=== PATIENT | female | born 1985 | race African-American/Black ===

== ENCOUNTER 2017-07-26 18:29 | Inpatient (IN) | payer OTHER ==
[2017-07-26] MEDS ORDERED: Oxytocin/Lactated Ringers 10 UNIT/1,000 ML BAG IV SCH (18:45)
[2017-07-26] MEDS ORDERED: Sodium Chloride 0.9% 10 ML Syringe FLUSH PRN (18:45)
[2017-07-26] MEDS ORDERED: Ondansetron 4 MG/2 ML SDV IVPUSH PRN ×2 (18:45→19:30)
[2017-07-26] MEDS ORDERED: Nalbuphine 20 MG/ML 1 ML Syringe IVPUSH PRN (18:45)
[2017-07-26] MEDS: Lactated Ringers 1,000 ML IV SCH ×3 (19:01→20:35)
[2017-07-26] MEDS ORDERED: fentaNYL 100 MCG/2 ML SDV EPIDUR PRN (19:30)
[2017-07-26] MEDS ORDERED: ePHEDrine 50 MG/ML SDV IVPUSH PRN (19:30)
--- NOTE | 2017-07-26 19:33 | PCM.PREANE ---
Preanesthetic Assessment - Anesthesia/Transfusion/Family Hx Anesthesia History: Prior Anesthesia Without Reaction Family History of Anesthesia Reaction: No Transfusion History: No Prior Transfusion(s) Intubation History: Unknown - Review of Systems General: No Symptoms Pulmonary: No Symptoms Cardiovascular: No Symptoms Gastrointestinal: No Symptoms Neurological: No Symptoms Other: Reports: None - Physical Assessment NPO Status Date: 07/26/17 NPO Status Time: 16:00 Pulse: 86 O2 Sat by Pulse Oximetry: 100 Respiratory Rate: 20 Blood Pressure: 158/93 Temperature: 36.8 C Vital Signs: Last Vital Signs Temp 36.8 C 07/26/17 18:45 Pulse 86 07/26/17 19:06 Resp 20 07/26/17 18:45 BP 158/93 H 07/26/17 19:06 Pulse Ox 100 07/26/17 19:06 Height: 1.6 m Weight: 118.841 kg ASA Class: 2 Mental Status: Alert & Oriented x3 Airway Class: Mallampati = 3 Dentition: Reports: Normal Dentition, Caries Thyro-Mental Finger Breadths: 3 Mouth Opening Finger Breadths: 3 ROM/Head Extension: Full Lungs: Clear to Auscultation, Normal Respiratory Effort Cardiovascular: Regular Rate, Regular Rhythm, No Murmurs - Lab Values: Laboratory Last Values WBC 10.82 K/mm3 (3.98-10.04) H 07/26/17 18:55 RBC 4.71 M/mm3 (3.98-5.22) 07/26/17 18:55 Hgb 13.1 gm/L (11.2-15.7) 07/26/17 18:55 Hct 39.1 % (34.1-44.9) 07/26/17 18:55 MCV 83.0 fl (79.4-94.8) 07/26/17 18:55 MCH 27.8 pg (25.6-32.2) 07/26/17 18:55 MCHC 33.5 g/dl (32.2-35.5) 07/26/17 18:55 RDW Std Deviation 47.2 fL (36.4-46.3) H 07/26/17 18:55 Plt Count 172 K/mm3 (182-369) L 07/26/17 18:55 MPV 9.6 fl (9.4-12.3) 07/26/17 18:55 Neut % (Auto) 72.0 % (34.0-71.1) H 07/26/17 18:55 Lymph % (Auto) 17.6 % (19.3-51.7) L 07/26/17 18:55 Steele % (Auto) 7.7 % (4.7-12.5) 07/26/17 18:55 Eos % (Auto) 1.4 (0.7-5.8) 07/26/17 18:55 Baso % (Auto) 0.1 % (0.1-1.2) 07/26/17 18:55 Neut # (Auto) 7.80 K/mm3 (1.56-6.13) H 07/26/17 18:55 Lymph # (Auto) 1.90 K/mm3 (1.18-3.74) 07/26/17 18:55 Steele # (Auto) 0.83 K/mm3 (0.24-0.36) H 07/26/17 18:55 Eos # (Auto) 0.15 K/mm3 (0.04-0.36) 07/26/17 18:55 Baso # (Auto) 0.01 K/mm3 (0.01-0.08) 07/26/17 18:55 Above labs reviewed and noted and within acceptable ranges to proceed with epidural. - Allergies Allergies/Adverse Reactions: Allergies Allergy/AdvReac Type Severity Reaction Status Date / Time No Known Allergies Allergy Verified 07/26/17 12:55 - Anesthesia Plan Pre-Op Medication Ordered: None - Acknowledgements Anesthesia Type Planned: Epidural Pt an Appropriate Candidate for the Planned Anesthesia: Yes Alternatives and Risks of Anesthesia Discussed w Pt/Guardian: Yes Pt/Guardian Understands and Agrees with Anesthesia Plan: Yes PreAnesthesia Questionnaire - HOME MEDS Home Medications: Home Meds PNV95/Ferrous Fumarate/FA [ Tablet] 1 each PO DAILY 07/26/17 [History] - CURRENT (IN HOUSE) MEDS Current Meds: Current Medications Lactated Ringer's (Ringers, Lactated) 1,000 mls @ 100 mls/hr IV ASDIRECTED KRISTEN Last Admin: 07/26/17 19:01 Dose: 999 mls/hr Oxytocin/Lactated Ringer's (Pitocin In Lr 10 Units/1,000 Ml) 10 unit in 1,000 mls @ 500 mls/hr IV .CONTINUOUS KRISTEN Nalbuphine HCl (Nubain) 10 mg IVPUSH Q2H PRN PRN Reason: Pain (moderate 4-6) Ondansetron HCl (Zofran) 4 mg IVPUSH Q4H PRN PRN Reason: Nausea/Vomiting Sodium Chloride (Saline Flush) 10 ml FLUSH ASDIRECTED PRN PRN Reason: Keep Vein Open
[2017-07-26] MEDS ORDERED: Bupivacaine/fentaNYL/NS 100 ML Bag EPIDUR SCH (19:45)
--- NOTE | 2017-07-26 20:02 | PCM.LDHP ---
L&D History of Present Illness - General Date of Service: 07/26/17 Admit Problem/Dx: Patient Status Order with Admit Dx/Problem 07/26/17 18:46 Patient Status [ADT] Routine Admission Diagnosis/Problem Admission Diagnosis/Problem 07/26/17 19:55 Shayy Is a 32-year-old 2 para 1001 -[place] female who is seen in labor and delivery with active labor. Source of Information: Patient History Limitations: Reports: No Limitations - History of Present Illness Introduction:: Shayy is a 32-year-old 2 para 1001 -[place] female who was seen in labor and delivery in active labor. Her NANDA is set at 08/01/2017 by an early ultrasound done on 12/12/2016. This is closely supported by her LMP of placing her due date March the same time period. She was seen earlier today in labor and delivery for concerns about irregular contractions. She is noted to be 4 cm, 80% effaced, very soft, -4 station, posterior position with bulging bag of fernandez at that time. Nonstress test was reactive. She returns with more active contractions, occurring every 3-5 minutes. Centimeters by nurse evaluation. She is admitted. [employer] history 2 para 1001. Her first delivery was a viable, mejias vaginal delivery of a little weighing 6 lbs. 4 oz. on 04/18/2008 at 40-0/7 weeks. She had her last menstrual period as described above starting on 2016. Patient was seen early in the course the and followed through on a regular basis. Her weight gain was from 228 pounds 2 approximately 262 pounds for a weight gain of about 34 pounds. Growth was appropriate for dates. Her vital signs remained stable throughout the course. laboratory testing in showed blood to be O+ with a negative antibody screen. First trimester hemoglobin was 13.4 and platelets 246. Rubella titer was negative. Hepatitis B surface antigen was nonreactive. Second trimester labs showed hemoglobin 11.5 and an 1 hour GTT of 129. Antibody screen is negative. Group B strep screen was negative. Read first trimester were negative as was an HIV assay. Minimal risk factors noted in the . Past medical history: 1. Medical history of chlamydia. 2. Normal spontaneous vaginal delivery. Past surgical history: 1. Laparoscopic cholecystectomy Family history: Mother with diabetes. No anesthesia, bleeding, blood clotting problems noted in the family. No problems noted either. Social history. Patient is , is Olaf, she denies significant most alcohol, drugs or tobacco. She did smoke earlier in a quarter pack cigarettes per day. She does not work outside the home. Review of stones: In general patient is having significant discomfort at this time secondary labor Again: Negative Lungs: No shortness of breath or infectious symptoms Cardiovascular: No chest pain or exercise tolerance Breasts: Negative. Patient does plan to breast-feed GI: Negative : Contractions associated labor. Increased fundal height consistent with dates. Musculo skeletalminimal edema in lower extremities on occasion Neurological: Negative Physical exam: In general patient is a well-developed, well-nourished [place] female in moderate distress secondary labor. Skin is warm dry without lesions. HEENT neck and back within normal limits Lungs are clear with good breath sounds in all lung yeager. Cardiovascular exam shows regular rate and rhythm without murmurs. Breast exam is deferred. Abdomen is current with fundal height consistent with term Cervix as described above. Extremities and neurological exam grossly within normal limits. 07/26/17 20:02 Pain Score: 10 - Related Data Allergies/Adverse Reactions: Allergies Allergy/AdvReac Type Severity Reaction Status Date / Time No Known Allergies Allergy Verified 07/26/17 12:55 Home Medications: Home Meds PNV95/Ferrous Fumarate/FA [ Tablet] 1 each PO DAILY 07/26/17 [History] H&P Review of Systems - Review of Systems: Review Of Systems: See Below L&D Exam - Exam Exam: See Below - Vital Signs Vital Signs: Last Vital Signs Temp 36.8 C 07/26/17 19:43 Pulse 86 07/26/17 19:43 Resp 20 07/26/17 19:43 BP 158/93 H 07/26/17 19:43 Pulse Ox 100 07/26/17 19:43 Weight: 118.841 kg - Patient Data Lab Results Last 24 hrs: Laboratory Results - last 24 hr 07/26/17 Range/Units 18:55 WBC 10.82 H (3.98-10.04) K/mm3 RBC 4.71 (3.98-5.22) M/mm3 Hgb 13.1 (11.2-15.7) gm/L Hct 39.1 (34.1-44.9) % MCV 83.0 (79.4-94.8) fl MCH 27.8 (25.6-32.2) pg MCHC 33.5 (32.2-35.5) g/dl RDW Std Deviation 47.2 H (36.4-46.3) fL Plt Count 172 L (182-369) K/mm3 MPV 9.6 (9.4-12.3) fl Neut % (Auto) 72.0 H (34.0-71.1) % Lymph % (Auto) 17.6 L (19.3-51.7) % [place] % (Auto) 7.7 (4.7-12.5) % Eos % (Auto) 1.4 (0.7-5.8) Baso % (Auto) 0.1 (0.1-1.2) % Neut # (Auto) 7.80 H (1.56-6.13) K/mm3 Lymph # (Auto) 1.90 (1.18-3.74) K/mm3 [place] # (Auto) 0.83 H (0.24-0.36) K/mm3 Eos # (Auto) 0.15 (0.04-0.36) K/mm3 Baso # (Auto) 0.01 (0.01-0.08) K/mm3 Result Diagrams: 07/26/17 18:55 Problem List Initiated/Reviewed/Updated: Yes Orders Last 24hrs: Active Orders 24 hr Category Date Time Status Patient Status [ADT] Routine ADT 07/26/17 18:46 Active Activity as Tolerated [RC] PFP Care 07/26/17 18:45 Active Communication Order [RC] ASDIRECTED Care 07/26/17 18:45 Active Heart Tones [RC] ASDIRECTED Care 07/26/17 18:46 Active Notify Provider [RC] ASDIRECTED Care 07/26/17 19:30 Active Notify Provider [RC] PFP Care 07/26/17 18:45 Active Notify Provider [RC] PRN Care 07/26/17 18:45 Active Oxygen Therapy [RC] ASDIRECTED Care 07/26/17 19:30 Active Peripheral IV Care [RC] . DIRECTED Care 07/26/17 18:46 Active Pulse Oximetry [RC] ASDIRECTED Care 07/26/17 19:30 Active Vital Signs [RC] PER UNIT ROUTINE Care 07/26/17 18:45 Active CBC WITH AUTO DIFF [HEME] Stat Lab 07/26/17 18:55 Results Bupivacaine/fentaNYL/NS [fentaNYL/Bupivacaine/NS 2 MCG- Med 07/26/17 19:45 Active 0.125% 100 ML] 100 ml EPIDUR ASDIRECTED Lactated Ringers [Ringers, Lactated] 1,000 ml Med 07/26/17 18:45 Active IV ASDIRECTED Nalbuphine [Nubain] Med 07/26/17 18:45 Active 10 mg IVPUSH Q2H PRN Ondansetron [Zofran] Med 07/26/17 18:45 Active 4 mg IVPUSH Q4H PRN Oxytocin/Lactated Ringers [Pitocin in LR 10 Units/1,000 Med 07/26/17 18:45 Active ML] 10 unit in 1,000 ml IV .CONTINUOUS Sodium Chloride 0.9% [Saline Flush] Med 07/26/17 18:45 Active 10 ml FLUSH ASDIRECTED PRN ePHEDrine [ePHEDrine Sulfate] Med 07/26/17 19:30 Active 5 mg IVPUSH ASDIRECTED PRN fentaNYL [Sublimaze] Med 07/26/17 19:30 Active 100 mcg EPIDUR Q3H PRN Electronic Heart Tones Ext w TOCO [WOMSER] Oth 07/26/17 18:45 Ordered Routine Electronic Heart Tones Internal [WOMSER] Per Unit Oth 07/26/17 18:45 Ordered Routine Peripheral IV Insertion Adult [OM.PC] Routine Oth 07/26/17 18:45 Ordered Resuscitation Status Routine Resus Stat 07/26/17 18:45 Ordered Medication Orders Ephedrine Sulfate (Ephedrine Sulfate) 5 mg IVPUSH ASDIRECTED PRN PRN Reason: Hypotension Fentanyl (Sublimaze) 100 mcg EPIDUR Q3H PRN PRN Reason: Pain Last Admin: 07/26/17 19:44 Dose: 100 mcg Fentanyl/Bupivacaine HCl (Fentanyl/Bupivacaine/Ns 2 Mcg-0.125% 100 Ml) 100 ml EPIDUR ASDIRECTED KRISTEN Last Admin: 07/26/17 19:46 Dose: 100 ml Lactated Ringer's (Ringers, Lactated) 1,000 mls @ 100 mls/hr IV ASDIRECTED KRISTEN Last Admin: 07/26/17 19:36 Dose: 999 mls/hr Infusion: 07/26/17 19:36 Dose: 999 mls/hr Admin: 07/26/17 19:01 Dose: 999 mls/hr Oxytocin/Lactated Ringer's (Pitocin In Lr 10 Units/1,000 Ml) 10 unit in 1,000 mls @ 500 mls/hr IV .CONTINUOUS KRISTEN Nalbuphine HCl (Nubain) 10 mg IVPUSH Q2H PRN PRN Reason: Pain (moderate 4-6) Ondansetron HCl (Zofran) 4 mg IVPUSH Q4H PRN PRN Reason: Nausea/Vomiting Sodium Chloride (Saline Flush) 10 ml FLUSH ASDIRECTED PRN PRN Reason: Keep Vein Open Assessment/Plan Comment:: Assessment: 1.39-1/7 week intrauterine , active labor, advanced cervical dilation 2. Group B strep screen negative 3. Patient plans to breast-feed 4. Patient desires epidural 5. Rubella assay nonreactive. Patient is a candidate for MMR. Plan: 1. Anticipate normal spontaneous vaginal delivery. 2. Epidural per patient desire 3. Routine labor care. Will obtain a CBC upon admission. 4. Will offer MMR after delivery and prior to discharge from the hospital as rubella titer is nonreactive. 5. Support breast-feeding decision
--- NOTE | 2017-07-26 21:07 | PCM.SN ---
- Free Text/Narrative Note: Delivery note: Shayy is a 32-year-old 2 now para 2002 -[place] female who was admitted on the evening of 07/26/2017 in active labor with advanced cervical dilation to 8 cm. and having contractions every 3 minutes. She was 39-1/7 weeks with an NANDA of 08/01/2017. She been seen earlier in the day in what now appears to have been very early labor. Patient progressed quickly after epidural was placed for analgesia and became completely dilated.. She was pushed for approximately 15 minutes and delivered a viable, mejias, 3440 g (7 lbs. 9 oz. ) female infant with Apgars of 8 and 9, a length of 20 inches in a right occiput anterior position. Pitocin was administered IV after delivery of the baby to facilitate an increase in uterine tone and decrease the likelihood of bleeding. The perineum had a first-degree laceration which was repaired with 3- 0 Monocryl suture in a routine fashion using the epidural analgesia or anesthesia. The placenta delivered in a Dyer presentation, appeared intact and complete and was discarded per patient desire. Estimated blood loss was 100 mL. Patient' s condition good. Patient does plan to breast-feed.
[2017-07-26] MEDS ORDERED: Benzocaine/Menthol 20%-0.5% Spray 56 GM Canister TOP PRN (21:36)
[2017-07-26] MEDS ORDERED: Measles, Mumps & Rubella Vaccine 0.5 ML SDV SUBCUT ONE (21:36)
[2017-07-26] MEDS ORDERED: Docusate Sodium 100 MG Cap PO PRN (21:36)
[2017-07-26] MEDS ORDERED: Acetaminophen 325 MG Tab PO PRN (21:36)
[2017-07-26] MEDS ORDERED: Lanolin 100% Cream 7 GM Tube TOP PRN (21:36)
[2017-07-26] MEDS ORDERED: Witch Hazel Medicated Pads 100/Jar TOP PRN (21:36)
[2017-07-26] MEDS ORDERED: Bupivacaine 0.25% 10 ML SDV ONE (22:00)
[2017-07-26] MEDS: Ibuprofen 600 MG Tab PO PRN (23:46)
[2017-07-27] MEDS: Ibuprofen 600 MG Tab PO PRN ×2 (06:32→13:15)
--- NOTE | 2017-07-27 07:39 | PCM.SN ---
- Free Text/Narrative Note: note: Patient is doing well in the period. Minimal lochia, voiding well, ambulated without problems. Nursing without concerns. Patient is afebrile, vital signs are stable Abdomen is flat, soft, uterus is below the umbilicus and is firm and nontender. Legs are nontender. Assessment: recovery going well. Plan: Routine care. Patient be discharged home within the next 24- 48 hours.
--- NOTE | 2017-07-27 19:34 | PCM.DCSUM1 ---
Discharge Summary - Hospital Course Free Text/Narrative:: Shayy is a 32-year-old 2 now para 2002 -[place] female who was admitted on the evening of 07/26/2017 in active labor with advanced cervical dilation to 8 cm. and having contractions every 3 minutes. She was 39-1/7 weeks with an NANDA of 08/01/2017. She been seen earlier in the day in what now appears to have been very early labor. Patient progressed quickly after epidural was placed for analgesia and became completely dilated.. She was pushed for approximately 15 minutes and delivered a viable, mejias, 3440 g (7 lbs. 9 oz. ) female infant with Apgars of 8 and 9, a length of 20 inches in a right occiput anterior position. Pitocin was administered IV after delivery of the baby to facilitate an increase in uterine tone and decrease the likelihood of bleeding. The perineum had a first-degree laceration which was repaired with 3- 0 Monocryl suture in a routine fashion using the epidural analgesia or anesthesia. The placenta delivered in a Dyer presentation, appeared intact and complete and was discarded per patient desire. Estimated blood loss was 100 mL. Patient' s condition good. Patient does plan to breast-feed. patient been doing well. She is nursing without problems, ambulating well. She is desiring be discharged home. Laboratory testing includesas Hemoglobin 11.9 and platelets are 165,000. - Discharge Data Discharge Date: 07/27/17 Discharge Disposition: Home, Self-Care 01 Condition: Good - Patient Instructions Diet: Regular Diet as Tolerated (Nursing diet with increase in calories and calcium as directed) Activity: As Tolerated (No intercourse or tampons until bleeding resolves) Driving: May Drive Today Showering/Bathing: May Shower (May take a bath) Notify Provider of: Fever, Increased Pain, Swelling and Redness, Nausea and/or Vomiting - Discharge Plan Home Medications: Home Meds PNV95/Ferrous Fumarate/FA [ Tablet] 1 each PO DAILY 07/26/17 [History] Acetaminophen [Tylenol] 650 mg PO Q4H PRN tablet 07/27/17 [Rx] Ibuprofen [Motrin] 600 mg PO Q4H PRN tablet 07/27/17 [Rx] Patient Handouts: and Inducing , Baby Blues, Care After Vaginal Delivery - Discharge Summary/Plan Comment DC Time >30 min.: No Discharge Summary/Plan Comment: Discharge instructions: 1. Discharge home 2. Diet, activity and follow-up discussed with patient. Recommend nursing diet with increased calories and calcium. 3. Precautions given concern increased pain, bleeding, temperature, signs/ symptoms of DVT/PE. 4. Medications per home medication was printed, discussed with and given to the patient. 5. Return to clinic-patient call for an appointment with Dr. Metzger Diagnosis: Term -delivered Condition: Good - Patient Data Vitals - Most Recent: Last Vital Signs Temp 36.3 C 07/27/17 15:18 Pulse 83 07/27/17 15:18 Resp 16 07/27/17 15:18 BP 114/60 07/27/17 15:18 Pulse Ox 97 07/27/17 15:18 Weight - Most Recent: 118.841 kg I&O - Last 24 hours: Intake & Output 07/27/17 07/27/17 07/27/17 06:59 14:59 22:59 Intake Total 120 240 Balance 120 240 Lab Results - Last 24 hrs: Laboratory Results - last 24 hr 07/26/17 07/27/17 Range/Units 18:55 06:10 WBC 12.88 H (3.98-10.04) K/mm3 RBC 4.16 (3.98-5.22) M/mm3 Hgb 11.9 (11.2-15.7) gm/L Hct 34.9 (34.1-44.9) % MCV 83.9 (79.4-94.8) fl MCH 28.6 (25.6-32.2) pg MCHC 34.1 (32.2-35.5) g/dl RDW Std Deviation 46.4 H (36.4-46.3) fL Plt Count 165 L (182-369) K/mm3 MPV 9.3 L (9.4-12.3) fl Manual Slide Review Normal smear Med Orders - Current: Current Medications Acetaminophen (Tylenol) 650 mg PO Q4H PRN PRN Reason: mild pain or fever Benzocaine/Menthol (Dermoplast Pain Relief [place]) 0 gm TOP ASDIRECTED PRN PRN Reason: Perineal Comfort Measure Last Admin: 07/26/17 23:48 Dose: 1 can Docusate Sodium (Colace) 100 mg PO BID PRN PRN Reason: Constipation Emollient Ointment (Lansinoh Hpa) 0 gm TOP ASDIRECTED PRN PRN Reason: Sore Nipples Ibuprofen (Motrin) 600 mg PO Q4H PRN PRN Reason: Mild pain or fever Last Admin: 07/27/17 13:15 Dose: 600 mg Witch Yenny (Tucks) 1 pad TOP ASDIRECTED PRN PRN Reason: Hemorrhoid pain Last Admin: 07/26/17 23:48 Dose: 1 canister Discontinued Medications Ephedrine Sulfate (Ephedrine Sulfate) 5 mg IVPUSH ASDIRECTED PRN PRN Reason: Hypotension Fentanyl (Sublimaze) 100 mcg EPIDUR Q3H PRN PRN Reason: Pain Last Admin: 07/26/17 19:44 Dose: 100 mcg Fentanyl/Bupivacaine HCl (Fentanyl/Bupivacaine/Ns 2 Mcg-0.125% 100 Ml) 100 ml EPIDUR ASDIRECTED [facility] Last Admin: 07/26/17 19:46 Dose: 100 ml Lactated Ringer's (Ringers, Lactated) 1,000 mls @ 100 mls/hr IV ASDIRECTED [facility] Last Admin: 07/26/17 20:35 Dose: 125 mls/hr Oxytocin/Lactated Ringer's (Pitocin In Lr 10 Units/1,000 Ml) 10 unit in 1,000 mls @ 500 mls/hr IV .CONTINUOUS [facility] Last Admin: 07/26/17 20:47 Dose: 500 mls/hr Measles/Mumps/Rubella Vaccine Live (M-M-R Ii Vaccine) 0.5 ml SUBCUT .ONCE ONE Stop: 07/26/17 21:37 Last Admin: 07/27/17 09:09 Dose: 0.5 ml Nalbuphine HCl (Nubain) 10 mg IVPUSH Q2H PRN PRN Reason: Pain (moderate 4-6) Ondansetron HCl (Zofran) 4 mg IVPUSH Q4H PRN PRN Reason: Nausea/Vomiting Ondansetron HCl (Zofran) 4 mg IVPUSH ONETIME PRN PRN Reason: Nausea/Vomiting Sodium Chloride (Saline Flush) 10 ml FLUSH ASDIRECTED PRN PRN Reason: Keep Vein Open
== END 2017-07-27 21:15 | disposition home or self-care (01) | DRG 775 ==
LOC: JD.OBCHECK 18:29 → JD.OB 18:29 → JD.OBCHECK 18:44 → JD.OB 18:46 → OBSVTOIN 20:43 → JD.OB 20:44 → UNDODISOB 07-27 21:15
PROVIDERS: ADMIT Obstetrics & Gynecology; ATTEND Obstetrics & Gynecology
PROC: 10E0XZZ Delivery of Products of Conception, External Approach (ICD-10-PCS; principal; 2017-07-26)
PROC: 0HQ9XZZ Repair Perineum Skin, External Approach (ICD-10-PCS; 2017-07-26)
PROC: 3E0S3GC Introduction of Other Therapeutic Substance into Epidural Space, Percutaneous Approach (ICD-10-PCS; 2017-07-26)
DX: O70.0 First degree perineal laceration during delivery (principal); Z3A.39 39 weeks gestation of pregnancy; Z37.0 Single live birth; Z79.899 Other long term (current) drug therapy
CPT/HCPCS: 01967; 36415; 51701; 59025; 59300; 59409; 85025; 85027; 90707; A9270-GY; J2590; J3010; J7120